=== PATIENT | male | born 1965 | race Caucasian/White ===

== ENCOUNTER 2023-12-13 21:52 | Emergency (ER) | payer OTHER ==
[~2023-12-13] VITALS: Ht 165.1 cm; Wt 87.0 kg
[2023-12-13 22:07] VITALS: O2SAT 98
[2023-12-13] MEDS: HYDRALAZINE 20MG/ML VIAL IV ONE (22:45)
[2023-12-13] MEDS: ACETAMINOPHEN 325MG TABLET PO ONE (22:45)
[2023-12-13 23:34] LABS: BASOPHILS % 0.5 % (0.0-2.0); EOSINOPHILS % 1.1 % (0.0-5.0); HEMATOCRIT. 41.2 % (42.0-52.0); HEMOGLOBIN. 13.8 g/dL (14.0-18.0); LYMPHOCYTES % 11.5 % (20.0-50.0); MEAN CORPUSCULAR HEMOGLOBIN 30.1 pg (28.0-32.0); MEAN CORPUSCULAR HGB CONC 33.5 g/dL (31.0-37.0); MEAN PLATELET VOLUME 7.5 fl (7.4-10.4); MONOCYTES % 12.7 % (2.0-8.0); NEUTROPHILS % 74.2 % (40.0-76.0); PLATELET 245 x1000/uL (130-400); RED BLOOD CELL COUNT 4.58 mill/uL (4.7-6.1); WHITE BLOOD COUNT 6.5 x1000/uL (4.5-11.0)
[2023-12-13 23:35] LABS: CHLORIDE 105 mEq/L (98-107); POTASSIUM 3.3 mEq/L (3.5-5.1); SODIUM 134 mEq/L (136-145)
[2023-12-13 23:36] LABS: CARBON DIOXIDE 22 mEq/L (21-32)
[2023-12-13 23:37] LABS: CALCIUM 9.7 mg/dL (8.7-10.4)
[2023-12-13 23:41] LABS: CREATININE 0.8 mg/dL (0.6-1.3); GLUCOSE 93 mg/dL (70-105)
[2023-12-13 23:42] LABS: TROPONIN I HIGH SENSITIVITY 12 ng/L (3.0-53); UREA NITROGEN BLOOD 10 mg/dL (9-23)
[2023-12-14] MEDS ORDERED: AMLO10TA80 MT (02:21)
[2023-12-14] MEDS ORDERED: HYDR25TA78 MT (02:21)
[2023-12-14 02:50] VITALS: BP 134/69; PULSE 92; RESP 16; TEMP 98.5
== END 2023-12-14 03:00 | disposition home or self-care (01) ==
LOC: ER 21:52
DX: I10 Essential (primary) hypertension (principal); Z86.73 Personal history of transient ischemic attack (TIA), and cerebral infarction without residual deficits
CPT/HCPCS: 80048; 85025; 84484; 36415; 71045; 70450; 93005; 96374; 99285; J0360; Z7610 ×3